=== PATIENT | female | born 1970 | race Caucasian/White ===

== ENCOUNTER 2021-11-16 20:43 | Inpatient (IN) | payer OTHER, SELFPAY ==
--- NOTE | ~2021-11-16 | CT_ITS ---
EXAMINATION: CT ABDOMEN AND PELVIS WITH CONTRAST CLINICAL INFORMATION: Cramping left abdomen for 5 days COMPARISON: None TECHNIQUE: Multidetector volumetric images were obtained from the superior aspect of the liver through the pubic symphysis following administration 85 mL of Omnipaque 350 intravenous contrast. Sagittal and coronal reformatted images were obtained on the technologist's workstation. Oral contrast: No This CT examination was performed using dose optimization techniques as appropriate, variously including the following: *Automated exposure control *Adjustment of mA and/or kV according to patient size (this includes techniques or standardized protocols for targeted exams where dose is matched to indication/reason for exam; i.e. extremities or head) *Use of iterative reconstruction technique DLP: 867 mGy-cm FINDINGS: LUNG BASES: The visualized lung bases are unremarkable. LIVER, GALLBLADDER, AND BILIARY TREE: The liver demonstrates hypoattenuation suspicious for steatosis. No intrahepatic biliary ductal dilatation. Patient is status post cholecystectomy. PANCREAS: Unremarkable. SPLEEN: Unremarkable. ADRENAL GLANDS: Unremarkable. KIDNEYS AND URETERS: There is a 1.6 cm mildly hypodense exophytic lesion off the lower right kidney measuring greater than simple fluid density. Bilateral nephrograms are symmetric. No hydronephrosis or obstructing calculus bilaterally. BLADDER: Unremarkable. GASTROINTESTINAL TRACT: There is a focal region of mesenteric stranding adjacent to proximal small bowel loops in the left abdomen. Central 0.8 cm focus of gas is present in this region which appears to be extraluminal. Appearance could reflect sequelae of a perforated diverticulitis, as there do appear to be a few jejunal diverticula in this region. No significant free fluid. No evidence of bowel obstruction. Colon appears unremarkable. The appendix is unremarkable. ABDOMINAL WALL: No significant hernia is appreciated. LYMPH NODES: Normal. VASCULAR: Unremarkable. PELVIC VISCERA: Unremarkable. OSSEOUS STRUCTURES: There is facet arthropathy of the lower lumbar spine. Scattered endplate osteophytes are present. CT/CT abdomen pelvis w con IMPRESSION: 1. Focal mesenteric inflammation adjacent to proximal small bowel loops in the left abdomen, along with a subcentimeter focus of extraluminal gas. Appearance suggests sequelae of a perforated jejunal diverticulitis. No significant free fluid, though the focus of extraluminal gas could reflect developing small abscess. 2. Exophytic lesion measuring 1.6 cm off the lower right kidney, not cystic by CT criteria. This could reflect a complex/proteinaceous cyst though a mass cannot be excluded, and further assessment with renal ultrasound is recommended. 3. Hepatic steatosis. This critical result was discussed with Dr. Sanz on 11/17/2021 4:23 AM, and it was ascertained that the content and urgency of the report was understood at the time of direct communication. Fleischner guidelines were followed.
[2021-11-16 21:52] VITALS: BP 131/72; PULSE 90; RESP 16; TEMP 36.7; O2SAT 98; BMI 37.8
[2021-11-16 22:23] LABS: MANUAL DIFF FLAG NO
[2021-11-16 22:25] LABS: Basophils Absolute Auto 0.1 X10*3/uL (0.0-0.2); Basophils Percent Auto 0.7 % (0-2); Eosinophils Absolute Auto 0.2 X10*3/uL (0.0-0.4); Eosinophils Percent Auto 2.5 % (0-4); Hemoglobin 13.3 g/dl (12.0-16.0); Imm Gran Abs Auto 0.05 X10*3/uL (0.00-0.03); Imm Gran Pct Auto 0.7 % (0.0-0.4); Lymphocytes Percent Auto 27.5 % (20-40); Mean Corpuscular HGB Conc 34.1 g/dl (31.0-35.0); Mean Corpuscular Hemoglobin 31.7 pg (27.0-33.0); Mean Corpuscular Volume 92.9 fL (80.0-98.0); Mean Platelet Volume 8.9 fL (9.4-12.3); Monocytes Absolute Auto 0.5 X10*3/uL (0.1-1.2); Monocytes Percent Auto 7.3 % (2-11); Neutrophils Absolute Auto 4.4 x10*3/uL (2.0-8.3); Neutrophils Percent Auto 61.3 % (45-73); Platelet Count 297 X10*3/uL (160-400); White Blood Count 7.2 X10*3/uL (4.8-10.8)
[2021-11-16 22:26] LABS: Appearance Urine HAZY; Color Urine YELLOW; Glucose Urine UA NEG (NEG); Leukocyte Esterase Urine 1+ (NEG); Nitrite Urine POS (NEG); Specific Gravity - Urine 1.025 (1.005-1.025); UACC Culture Trigger YES; Urine Blood NEG (NEG); Urine Ketones NEG (NEG); Urine Protein NEG (NEG-TRACE)
[2021-11-16 22:33] LABS: Bacteria Urine 2+ /LPF; RBC Urine 0 /HPF (0); Squamous Epithelial Cell Urine 2+ /LPF
[2021-11-16 23:05] LABS: Anion Gap 8 (12-20); Blood Urea Nitrogen 10 mg/dL (9-16); Calcium 9.3 mg/dL (8.4-10.2); Carbon Dioxide 33 mmol/L (22-29); Chloride 105 mmol/L (96-108); Creatinine Clr Calc Pharmacy 85.4; Estimated Glomerular Filt Rate > 60; Glucose Random 105 mg/dL (60-115); Sodium 142 mmol/L (135-145)
--- NOTE | 2021-11-17 00:51 | PC.NURSE ---
PT reports no N/V/D the past week. Stated that she has been having small BM and feels like her stomach is bloated. PT did report having the chills along with the stomach pain that started on [place]. PT stated that she had a large meal [place] morning when all of this started.
--- NOTE | 2021-11-17 03:13 | ED_ITS ---
HPI - Abdominal Pain General Chief Complaint: Abdominal Pain Stated Complaint: Abdominal pain Time Seen by Provider: 11/17/21 03:03 Source: patient Limitations: no limitations History of Present Illness HPI narrative: this is a 51-year-old female who since has had a cramping feeling in her abdomen, worse in the left side, sometimes radiating through to her back. Patient thought she might have a bowel obstruction. She denies any nausea or vomiting. She denies any constipation or diarrhea. She denies any urinary symptoms. She has not had any fever. She describes the pain as shooting and is worse when she presses on her mid abdomen. She does have history of cholecystectomy, denies other surgery. MD elicited complaint: abdominal pain Related Data Allergies Allergy/AdvReac Type Severity Reaction Status Date / Time acetaminophen [From VICODIN] Allergy Unknown DIFF Verified 11/17/21 05:53 BREATHING hydrocodone [From VICODIN] Allergy Unknown DIFF Verified 11/17/21 05:53 BREATHING penicillin V Allergy Unknown Difficulty Verified 11/17/21 05:53 Breathing Penicillins [PENICILLINS] Allergy Unknown DIFF Verified 11/17/21 05:53 BREATHING Review of Systems Review of Systems Yes all other systems are reviewed and are negative Constitutional: Reports as per HPI and Denies fever(s) Eyes: Reports as per HPI and Reports no additional eye complaints Reports system reviewed and no additional complaints, except as documented, Reports as per HPI, Denies nasal congestion, Denies nasal discharge and Denies sore throat Cardiovascular: Reports as per HPI, Denies chest pain and Denies dyspnea Respiratory: Reports as per HPI, Denies cough and Denies dyspnea Gastrointestinal: Reports as per HPI, Reports abdominal pain, Denies change in stool character, Reports GI cramping, Denies diarrhea and Denies vomiting Genitourinary: Reports as per HPI, Denies hematuria, Denies urinary frequency and Denies dysuria Musculoskeletal: Reports no additional musculoskeletal complaints and Denies numbness Skin/Breast: Reports as per HPI and Denies rash Reports as per HPI, Denies focal weakness, Denies numbness and Denies Sensory deficit (Neuro) Psychiatric: Reports no additional psychiatric complaints and Reports as per HPI Endocrine: Reports no additional endocrine complaints and Reports as per HPI Hematologic/Lymphatic: Reports no additional hematologic/lymphatic complaints, Reports as per HPI and Reports other (No peripheral edema) Physical Exam Vital Signs: Vital Signs: Last Vital Signs Temp 98.0 F 11/16/21 21:52 Pulse 80 11/17/21 05:10 Resp 16 11/17/21 05:10 BP 132/86 11/17/21 05:10 Pulse Ox 98 11/17/21 05:10 BMI result Body Mass Index 37.8 Const: Other: Patient moderately obese. Not ill appearing. Patient seems somewhat preoccupied on her symptoms General: cooperative, no acute distress and alert Orientation/consciousness: patient oriented x3 HENMT: Head: Yes normal to inspection Eyes: General: appearance normal, both eyes and all related structures Eyelids: Yes eyelids normal Conjunctivae: conjunctivae normal Pupils: Equal, round and reactive pupils present Neck: Neck: Yes normal visual inspection and Yes supple Chest: Chest palpation & inspection: normal inspection of the chest Resp: Effort & Inspection: normal respiratory effort Auscultation: clear to auscultation bilaterally Cardio: Rate: regular rate Rhythm: regular rhythm Heart sounds: S1 normal heart sound present, S2 normal heart sound present, no gallops, no murmurs and no rubs GI: Palpation (GI): Soft to palpation, nontender and Other GI palpation findings present (Non-distended) Auscultation: normal bowel sounds Skin: General skin exam: no rashes or lesions noted Neuro: General: patient oriented x3, no focal motor deficits and CN's II-XI intact bilaterally Cranial nerves: Yes Equal, round and reactive pupils present Cognition (Neuro): normal cognition Motor exam (neuro): 5/5 motor strength present throughout Sensory Exam: No Sensory deficit (Neuro) Extrem: General: Yes normal to inspection and Yes no pedal edema Psych: Appearance: grossly normal Affect: normal affect MDM - Abdominal Pain MDM Narrative Medical decision making narrative: patient with a sense of abdominal cramping for approximately 6 days. Patient had minimal tenderness on exam. Symptoms worse on the left side. CBC and chemistry unremarkable. Urinalysis was positive for nitrites and leukocyte esterase but only a 3-5 white blood cells per high-power field, and the patient had no UTI symptoms. CT of the head and pelvis did show evidence of small-bowel diverticulitis with possible small perforation. Case was discussed with Dr. Stover of general surgery who will admit the patient. . Possible microperforation, no drainable fluid collection Lab Data Attestation: I reviewed the patient's lab results. Result diagrams: 11/16/21 22:19 11/16/21 22:19 Labs: Lab Results 11/16/21 11/16/21 11/16/21 Range/Units 22:19 22:19 22:19 WBC 7.2 (4.8-10.8) X10*3/uL RBC 4.20 (4.20-5.50) X10*6/uL Hgb 13.3 (12.0-16.0) g/dl Hct 39.0 (37.0-47.0) % MCV 92.9 (80.0-98.0) fL MCH 31.7 (27.0-33.0) pg MCHC 34.1 (31.0-35.0) g/dl RDW 12.0 (11.0-16.0) % Plt Count 297 (160-400) X10*3/uL MPV 8.9 L (9.4-12.3) fL Immature Gran % (Auto) 0.7 H (0.0-0.4) % Neut % (Auto) 61.3 (45-73) % Lymph % (Auto) 27.5 (20-40) % [place] % (Auto) 7.3 (2-11) % Eos % (Auto) 2.5 (0-4) % Baso % (Auto) 0.7 (0-2) % Lymph # (Auto) 2.0 (1.2-4.9) X10*3/uL [place] # (Auto) 0.5 (0.1-1.2) X10*3/uL Eos # (Auto) 0.2 (0.0-0.4) X10*3/uL Baso # (Auto) 0.1 (0.0-0.2) X10*3/uL Abs Immat Gran (auto) 0.05 H (0.00-0.03) X10*3/uL Absolute Neuts (auto) 4.4 (2.0-8.3) x10*3/uL Absolute Nucleated RBC 0.000 (0.0-0.012) X10*3/uL Nucleated RBC % (auto) 0.0 (0.0-0.2) /100WBC Sodium 142 (135-145) mmol/L Potassium 4.0 (3.3-5.1) mmol/L Chloride 105 (96-108) mmol/L Carbon Dioxide 33 H (22-29) mmol/L Anion Gap 8 L (12-20) BUN 10 (9-16) mg/dL Creatinine 0.79 (0.5-1.4) mg/dL Estim Creat Clear Calc 85.4 Estimated GFR > 60 Random Glucose 105 (60-115) mg/dL Calcium 9.3 (8.4-10.2) mg/dL Urine Color YELLOW Urine Appearance HAZY Urine pH 6.0 (5.0-8.0) Ur Specific [place] 1.025 (1.005-1.025) Urine Protein NEG (NEG-TRACE) MG/DL Urine Glucose (UA) NEG (NEG) MG/DL Urine Ketones NEG (NEG) MG/DL Urine Blood NEG (NEG) Urine Nitrite POS H (NEG) Ur Leukocyte Esterase 1+ H (NEG) Urine RBC 0 (0) /HPF Urine WBC 1-4 (0-4) /HPF Ur Squamous Epith Cells 2+ /LPF Urine Bacteria 2+ /LPF Imaging Data CT of the abdomen and pelvis with IV contrast: Attestation: I personally reviewed and interpreted this imaging study as follows: Radiologist's impression: 1.? Focal mesenteric inflammation adjacent to proximal small bowel loops in the left abdomen, along with a subcentimeter focus of extraluminal gas. Appearance suggests sequelae of a perforated jejunal diverticulitis. No significant free fluid, though the focus of extraluminal gas could reflect developing small abscess. 2.? Exophytic lesion measuring 1.6 cm off the lower right kidney, not cystic by CT criteria. This could reflect a complex/proteinaceous cyst though a mass cannot be excluded, and further assessment with renal ultrasound is recommended. 3.? Hepatic steatosis. ? This critical result was discussed with Dr. Sanz on 11/17/2021 4:23 AM, and it was ascertained that the content and urgency of the report was understood at the time of direct communication. Discharge Plan Discharge Clinical Impression: Diverticulitis Patient Disposition: Admitted As Inpatient [facility] Past Medical History Medical History (Updated 11/17/21 @ 06:57 by Jarek Sanz MD) No known health problems Social History Social History Advance Directives: No Patient : No
[2021-11-17 03:40] VITALS: BP 127/65; PULSE 78; RESP 16; O2SAT 100
[2021-11-17] MEDS: iohexoL 350 MG/ML 100 ML INFUS..BTL 85 ML IV (03:45)
[2021-11-17 05:10] VITALS: BP 132/86; PULSE 80; RESP 16; O2SAT 98
--- NOTE | 2021-11-17 05:44 | PC.NURSE ---
This RN attempted to complete PT med rec at bed side. PT stated that she does not take any meds at home at this time.
[2021-11-17 05:52] LABS: COVID-19 Test Negative (Negative); IDNOW Serial# 9DD0AD1C
[2021-11-17] MEDS: 0.9 % Sodium Chloride 1,000 ML 80 ML IVCONT (05:57)
[2021-11-17] MEDS: Heparin Sodium,Porcine 5,000 UNIT/ML VIAL 5000 UNIT SUBCUT ×2 (05:57→17:53)
[2021-11-17] MEDS: metroNIDAZOLE/NS 500 MG/100 ML PIGGYBACK 100 MG IV ×3 (06:02→21:51)
--- NOTE | 2021-11-17 06:49 | PC.NURSE ---
Report given to observation unit.
[2021-11-17] MEDS: levoFLOXacin/D5W 500 MG/100 ML PIGGYBACK 100 MG IV (07:14)
--- NOTE | 2021-11-17 08:57 | P.HPGS_ITS ---
History of Present Illness History of Present Illness Date of Service: 11/17/21 Chief complaint: Abd pain Narrative: Carolina Elias is a 51 year old female presenting with complaints of generalized abdominal pain feel worse in the left lower quadrant. The pain began around and has persisted since then. Pain initially was felt more the left upper quadrant but now has become more persistent in the lower quadrants. She denies fever, chills, nausea, or vomiting. She has not moved her bowels in several days and feels somewhat bloated because of this. She denies a previous history of similar complaints. Her past history is significant only for a cholecystectomy in 1996 and denies any problems following the surgery. She presented To the emergency department for further evaluation. Initial laboratories revealed a normal WBC. A CT of the abdomen and pelvis revealed a focal area of mesenteric inflammation adjacent to small bowel loops in the left abdomen along with a subcentimeter focus of extraluminal gas, possibly due to jejunal diverticulitits. No free fluid noted. Exophytic lesion in the right kidney, possible complex proteinaceous cyst or mass. Renal ultrasound recommended. Review of Systems Review of Systems: Yes all other systems are reviewed and are negative Constitutional: Constitutional: Denies chills, Denies fever(s), Denies headache(s) and Denies poor appetite ENT: Denies dizziness and Denies headache(s) Cardiovascular: Cardiovascular: Denies chest pain, Denies rapid heart rate, Denies palpitations and Denies slow heart rate Respiratory: Respiratory: Denies chest congestion, Denies cough, Denies pain on inspiration and Denies wheezing Gastrointestinal: Gastrointestinal: Reports as per HPI, Reports abdominal pain, Denies bloating, Reports change in stool character, Reports constipation, Denies diarrhea, Denies nausea, Denies vomiting and Denies hematemesis Musculoskeletal: Musculoskeletal: Denies back pain, Denies arthralgias, Denies joint swelling and Denies numbness Integumentary/Breasts: Skin/Breast: Denies change in pigmentation, Denies erythema and Denies rash Neurologic: Denies dizziness, Denies headache(s) and Denies numbness Psychiatric: Psychiatric: Denies anxiety and Denies depression Endocrine: Endocrine: Denies palpitations Hematologic/Lymphatic: Hematologic/Lymphatic: Denies easy bleeding, Denies easy bruising and Denies lymphadenopathy Allergic/Immunologic: Allergic/Immunologic: Denies wheezing PMFSH Past Medical History Medical History (Updated 11/17/21 @ 06:57 by Jarek Sanz MD) No known health problems Surgical History Surgical History (Updated 11/17/21 @ 09:04 by Josué Victoria MD) S/P cholecystectomy Social History Social History Advance Directives: No Patient : No Meds Allergies Allergy/AdvReac Type Severity Reaction Status Date / Time acetaminophen [From VICODIN] Allergy Unknown DIFF Verified 11/17/21 05:53 BREATHING hydrocodone [From VICODIN] Allergy Unknown DIFF Verified 11/17/21 05:53 BREATHING penicillin V Allergy Unknown Difficulty Verified 11/17/21 05:53 Breathing Penicillins [PENICILLINS] Allergy Unknown DIFF Verified 11/17/21 05:53 BREATHING Active Medications: Current Medications Heparin Sodium (Porcine) (Heparin Sodium,Porcine 5,000 Unit/Ml Vial) 5,000 unit SUBCUT Q12H [facility] Last Admin: 11/17/21 05:57 Dose: 5,000 unit Documented by: Sodium Chloride (Ns) 1,000 mls @ 80 mls/hr IVCONT .[id number] [facility] Last Admin: 11/17/21 05:57 Dose: 80 mls/hr Documented by: Levofloxacin (Levaquin) 500 mg in 100 mls @ 100 mls/hr IV Q24H [facility] Last Infusion: 11/17/21 08:49 Dose: Infused Documented by: Metronidazole (Flagyl) 500 mg in 100 mls @ 100 mls/hr IV Q8H [facility] Last Infusion: 11/17/21 07:13 Dose: Infused Documented by: Morphine Sulfate (Morphine Sulfate 4 Mg/Ml Cartridge) 3 mg IVPUSH Q4H PRN; Protocol PRN Reason: Pain, Severe (Pain Scale 7-10) Ondansetron HCl (Ondansetron Hcl 4 Mg/2 Ml Vial) 4 mg IVPUSH Q8H PRN PRN Reason: nausea Sodium Chloride (0.9 % Sodium Chloride Flush 3 Ml Syringe) 3 ml IVFLUSH QSHIFT [facility] Last Admin: 11/17/21 08:49 Dose: Not Given Documented by: Physical Exam Vital Signs: Vital Signs: Last Vital Signs Temp 98.0 F 11/16/21 21:52 Pulse 80 11/17/21 05:10 Resp 16 11/17/21 05:10 BP 132/86 11/17/21 05:10 Pulse Ox 98 11/17/21 05:10 BMI result Body Mass Index 37.8 Const: General: cooperative, comfortable and no acute distress Nutritional Appearance: well nourished Orientation/consciousness: patient oriented x3 Limitations: no limitations HENMT: Head: Yes normocephalic Ears: hearing grossly normal bilaterally Eyes: Sclerae: sclerae normal Neck: Neck: Yes normal visual inspection Resp: Effort & Inspection: normal respiratory effort Auscultation: clear to auscultation bilaterally GI: Inspection: Yes normal to inspection Palpation (GI): Soft to palpation, Tenderness to palpation present (GI) (mildly tender to deep palpation) in the LLQ and in the LUQ; Negative for with no rebound tenderness, no guarding, No hepatosplenomegaly present and no masses Percussion: Yes normal to percussion Auscultation: normal bowel sounds Rectal Exam - Female: deferred Skin: General skin exam: no rashes or lesions noted Neuro: General: patient oriented x3 Extrem: General: Yes normal exam except as noted Results Results Labs: Short CBC 11/16/21 Range/Units 22:19 WBC 7.2 (4.8-10.8) X10*3/uL Hgb 13.3 (12.0-16.0) g/dl Hct 39.0 (37.0-47.0) % Plt Count 297 (160-400) X10*3/uL BMP 11/16/21 22:19 Sodium 142 Potassium 4.0 Chloride 105 Carbon Dioxide 33 H BUN 10 Creatinine 0.79 Calcium 9.3 Urine 11/16/21 Range/Units 22:19 Urine Color YELLOW Urine Appearance HAZY Urine pH 6.0 (5.0-8.0) Ur Specific [place] 1.025 (1.005-1.025) Urine Protein NEG (NEG-TRACE) MG/DL Urine Glucose (UA) NEG (NEG) MG/DL Assessment and Plan (1) Diverticulitis: Status: Acute 51 year old female patient presenting with complaints of left sided abdominal pain found to have tenderness in the lower abdomen left> right. Labs reveal a normal WBC but CT is concerning for a jejunal microperf with diverticulitis. Her exam this morning is very benign with minimal tenderness to deep palpation and without peritoneal signs. Will continue Levofloxacin and Metronidizole and recheck WBC in AM. May need to repeat the scan tomorrow if WBC increased or abdominal pain worsens. Discussed plan with the patient and she agrees with the plan. Quality Stroke Does the patient have a stroke diagnosis?: No VTE Prior VTE?: No VTE Risk Level:: Medical - moderate - high VTE Device Contraindication: N/A - Device Ordered VTE Drug Contraindication: N/A - Med Ordered Procedures Date of Service Date of Service: 11/17/21
[2021-11-17 09:00] VITALS: BP 119/53; PULSE 77; RESP 15; O2SAT 98
[2021-11-17] MEDS: Dextrose 5 % and Lactated Ring 1,000 ML 125 ML IVCONT ×3 (09:24→23:36)
--- NOTE | 2021-11-17 10:18 | MHC.CM.PN ---
EMR REVIEWED, PT ADMITTED W/ABD PAIN AND ACUTE DIVERTICULITIS, PER SURGICAL PT WILL REMAIN ON IV LEVOFLOXACINA AND METRONIDIZOLE AND LABS WILL BE RECHECKED IN AM, CM MET W/PT WHO REPORTS SHE LIVES W/HER AND HE WILL PROVIDE TRANSPORT HOME, PT WORKS, IS INDEPENDENT W/ALL CARE, NO DME AND NO HOME SERVICES, PT VERIFIES PCP IS OSMAN ADAME AND WOULD LIKE TO COMPLETE A HCP PRIOR TO D/C. D/C PLAN: HOME NO SERVICES, FOR TRANSPORT.
[2021-11-17] MEDS: 0.9 % Sodium Chloride Flush 3 ML SYRINGE IVFLUSH ×2 (14:41→23:36)
[2021-11-17 14:42] VITALS: BMI 40.7
[2021-11-17 16:00] VITALS: BP 114/57; PULSE 80; RESP 17; TEMP 36.2; O2SAT 98
--- NOTE | 2021-11-17 16:19 | MHC.CM.PN ---
CM MET W/PT TO COMPLETE HCP, PT NAMES HER [facility] [phone] HER HEALTH CARE AGENT AND HER DTR GENE POS [phone] HER ALTERNATE, PT PROVIDED W/EDUCATIONAL INFO, ORIGINAL AND 2 COPIES, COPY UPLOADED TO [email or web address] AND PLACED IN CHART.
[2021-11-17] MEDS: Acetaminophen 325 MG TABLET 650 MG PO (17:52)
[2021-11-17] MEDS: ondansetron HCL 4 MG/2 ML VIAL IVPUSH (17:52)
[2021-11-17 20:00] VITALS: BP 117/69; PULSE 76; RESP 17; TEMP 36.2; O2SAT 96
[2021-11-18] VITALS: BP 121/57; PULSE 72; RESP 17; TEMP 36.1; O2SAT 95
[2021-11-18] MEDS: Acetaminophen 325 MG TABLET 650 MG PO (01:41)
[2021-11-18 04:00] VITALS: BP 128/65; PULSE 64; RESP 17; TEMP 36.1; O2SAT 96
[2021-11-18] MEDS: levoFLOXacin/D5W 500 MG/100 ML PIGGYBACK 100 MG IV (05:10)
[2021-11-18] MEDS: Heparin Sodium,Porcine 5,000 UNIT/ML VIAL 5000 UNIT SUBCUT ×2 (06:15→16:40)
[2021-11-18] MEDS: metroNIDAZOLE/NS 500 MG/100 ML PIGGYBACK 100 MG IV ×3 (06:17→21:43)
[2021-11-18 06:24] LABS: MANUAL DIFF FLAG NO
[2021-11-18 06:34] LABS: Basophils Percent Auto 0.8 % (0-2); Eosinophils Absolute Auto 0.1 X10*3/uL (0.0-0.4); Eosinophils Percent Auto 1.8 % (0-4); Hematocrit 37.4 % (37.0-47.0); Hemoglobin 12.4 g/dl (12.0-16.0); Imm Gran Abs Auto 0.04 X10*3/uL (0.00-0.03); Imm Gran Pct Auto 0.8 % (0.0-0.4); Lymphocytes Absolute Auto 1.3 X10*3/uL (1.2-4.9); Lymphocytes Percent Auto 26.7 % (20-40); Mean Corpuscular HGB Conc 33.2 g/dl (31.0-35.0); Mean Corpuscular Volume 93.5 fL (80.0-98.0); Monocytes Absolute Auto 0.3 X10*3/uL (0.1-1.2); Neutrophils Absolute Auto 3.2 x10*3/uL (2.0-8.3); Neutrophils Percent Auto 63.9 % (45-73); Platelet Count 282 X10*3/uL (160-400)
[2021-11-18 06:50] LABS: Anion Gap 8 (12-20); Blood Urea Nitrogen 7 mg/dL (9-16); Calcium 8.9 mg/dL (8.4-10.2); Carbon Dioxide 30 mmol/L (22-29); Chloride 108 mmol/L (96-108); Creatinine Clr Calc Pharmacy 91.5; Estimated Glomerular Filt Rate > 60; Glucose Random 126 mg/dL (60-115); Sodium 142 mmol/L (135-145)
--- NOTE | 2021-11-18 07:20 | PC.NURSE ---
0635, IV SITE AT RIGHT AC NOTED TO BE RED, LITTLE ITCHY, AND TENDER. ANGIO REMOVED INTACT, WARM PACK APPLIED FOR COMFORT. NEW SITE ESTABLISHED TO LEFT AC #22, IVABX RESUMED. DAY RN UPDATED.
[2021-11-18 07:52] VITALS: BP 118/68; PULSE 66; RESP 18; TEMP 36.5; O2SAT 99
--- NOTE | 2021-11-18 10:59 | PM.PNGS ---
Subjective Subjective Date of Service: 11/18/21 Interval history: Patient feels improved with decreased abdominal pain and no nausea or vomiting. She denies having a bowel movement but does pass flatus. She denies fever or chills. Physical Exam Vital Signs: Vital Signs: Last Vital Signs Temp 97.7 F 11/18/21 07:52 Pulse 66 11/18/21 07:52 Resp 18 11/18/21 07:52 BP 118/68 11/18/21 07:52 Pulse Ox 99 11/18/21 07:52 BMI result Body Mass Index 40.7 Const: General: no acute distress and well developed Resp: Effort & Inspection: normal respiratory effort, no audible wheezes, no cough and no respiratory distress GI: Inspection: Yes normal to inspection Palpation (GI): Soft to palpation, nontender, no guarding, not rigid and No Rebound tenderness present Skin: General skin exam: no rashes or lesions noted Extrem: General: Yes no clubbing, cyanosis or edema Objective Data Active Medications Acetaminophen (Acetaminophen 325 Mg Tablet) 650 mg PO Q6H PRN PRN Reason: Headache Last Admin: 11/18/21 01:41 Dose: 650 mg Documented by: JOSE Heparin Sodium (Porcine) (Heparin Sodium,Porcine 5,000 Unit/Ml Vial) 5,000 unit SUBCUT Q12H [facility] Last Admin: 11/18/21 06:15 Dose: 5,000 unit Documented by: JOSE Levofloxacin (Levaquin) 500 mg in 100 mls @ 100 mls/hr IV Q24H [facility] Last Infusion: 11/18/21 06:28 Dose: 0 mls/hr Documented by: JOSE Metronidazole (Flagyl) 500 mg in 100 mls @ 100 mls/hr IV Q8H [facility] Last Infusion: 11/18/21 08:39 Dose: 0 mls/hr Documented by: JAVON Dextrose/Lactated Ringer's (D5lr) 1,000 mls @ 125 mls/hr IVCONT .Q8H [facility] Last Infusion: 11/18/21 05:10 Dose: 0 mls/hr Documented by: JOSE Morphine Sulfate (Morphine Sulfate 4 Mg/Ml Cartridge) 3 mg IVPUSH Q4H PRN; Protocol PRN Reason: Pain, Severe (Pain Scale 7-10) Ondansetron HCl (Ondansetron Hcl 4 Mg/2 Ml Vial) 4 mg IVPUSH Q8H PRN PRN Reason: nausea Last Admin: 11/17/21 17:52 Dose: 4 mg Documented by: NITIN Sodium Chloride (0.9 % Sodium Chloride Flush 3 Ml Syringe) 3 ml IVFLUSH QSHIFT [facility] Last Admin: 11/18/21 08:39 Dose: Not Given Documented by: JAVON Non-Admin Reason: IV Running Labs CBC & Chem 7: 11/18/21 05:30 11/18/21 05:30 Labs: Laboratory Results - last 24 hr 11/18/21 11/18/21 05:30 05:30 MCV 93.5 MCH 31.0 MCHC 33.2 RDW 12.0 Plt Count 282 MPV 9.0 L Immature Gran % (Auto) 0.8 H Neut % (Auto) 63.9 Lymph % (Auto) 26.7 Collier % (Auto) 6.0 Eos % (Auto) 1.8 Baso % (Auto) 0.8 Lymph # (Auto) 1.3 Collier # (Auto) 0.3 Eos # (Auto) 0.1 Baso # (Auto) 0.0 Abs Immat Gran (auto) 0.04 H Absolute Neuts (auto) 3.2 Absolute Nucleated RBC 0.000 Nucleated RBC % (auto) 0.0 Anion Gap 8 L Estim Creat Clear Calc 91.5 Estimated GFR > 60 Random Glucose 126 H Calcium 8.9 Microbiology Microbiology Results: Microbiology 11/16/21 22:27 Urine Culture - Final Urine clean catch - Urine ag top Escherichia coli Procedures Date of Service Date of Service: 11/18/21 Progress Note: A&P Assessment and plan (1) Diverticulitis: Status: Acute Assessment and Plan: 51 year old female patient presenting with complaints of left sided abdominal pain found to have tenderness in the lower abdomen left> right.? Labs reveal a normal WBC but CT is concerning for a jejunal microperf with diverticulitis.? Her exam again is benign with no tenderness to deep palpation in the left lower quadrant. WBC this morning is normal at 5.0. I will continue the Levaquin and metronidazole and start her on clear liquid diet today. If this is well tolerated she will be advanced to a regular diet tomorrow with possible discharge later in the day.? Discussed plan with the patient and she agrees with the plan.? Fall Risk Details Current Medications: Current Medications Acetaminophen (Acetaminophen 325 Mg Tablet) 650 mg PO Q6H PRN PRN Reason: Headache Last Admin: 11/18/21 01:41 Dose: 650 mg Documented by: Heparin Sodium (Porcine) (Heparin Sodium,Porcine 5,000 Unit/Ml Vial) 5,000 unit SUBCUT Q12H [facility] Last Admin: 11/18/21 06:15 Dose: 5,000 unit Documented by: Levofloxacin (Levaquin) 500 mg in 100 mls @ 100 mls/hr IV Q24H [facility] Last Infusion: 11/18/21 06:28 Dose: Infused Documented by: Metronidazole (Flagyl) 500 mg in 100 mls @ 100 mls/hr IV Q8H [facility] Last Infusion: 11/18/21 08:39 Dose: Infused Documented by: Dextrose/Lactated Ringer's (D5lr) 1,000 mls @ 125 mls/hr IVCONT .Q8H [facility] Last Infusion: 11/18/21 05:10 Dose: 0 mls/hr Documented by: Morphine Sulfate (Morphine Sulfate 4 Mg/Ml Cartridge) 3 mg IVPUSH Q4H PRN; Protocol PRN Reason: Pain, Severe (Pain Scale 7-10) Ondansetron HCl (Ondansetron Hcl 4 Mg/2 Ml Vial) 4 mg IVPUSH Q8H PRN PRN Reason: nausea Last Admin: 11/17/21 17:52 Dose: 4 mg Documented by: Sodium Chloride (0.9 % Sodium Chloride Flush 3 Ml Syringe) 3 ml IVFLUSH QSHIFT [facility] Last Admin: 11/18/21 08:39 Dose: Not Given Documented by: Time Spent With Patient Time: Total time spent is greater than 50% in coordination of care (as documented) at patient's floor/unit and/or counseling patient: Time with patient: 15 - 24 minutes Quality Stroke Does the patient have a stroke diagnosis?: No VTE Prior VTE?: No VTE Risk Level:: Medical - moderate - high VTE Device Contraindication: N/A - Device Ordered VTE Drug Contraindication: N/A - Med Ordered
[2021-11-18 12:00] VITALS: BP 117/76; PULSE 78; RESP 18; TEMP 36.3; O2SAT 98
[2021-11-18] MEDS: Dextrose 5 % and Lactated Ring 1,000 ML 125 ML IVCONT ×2 (12:19→21:43)
[2021-11-18 16:00] VITALS: BP 128/76; PULSE 68; RESP 17; TEMP 36.3; O2SAT 98
[2021-11-18 20:00] VITALS: BP 140/73; PULSE 74; RESP 17; TEMP 36.3; O2SAT 97
[2021-11-19] VITALS: BP 130/72; PULSE 60; RESP 17; TEMP 36.4; O2SAT 96
[2021-11-19 03:48] VITALS: BP 132/71; PULSE 67; RESP 17; TEMP 36.1; O2SAT 98
[2021-11-19] MEDS: levoFLOXacin/D5W 500 MG/100 ML PIGGYBACK 100 MG IV (04:50)
[2021-11-19] MEDS: Dextrose 5 % and Lactated Ring 1,000 ML 125 ML IVCONT (04:50)
[2021-11-19] MEDS: Heparin Sodium,Porcine 5,000 UNIT/ML VIAL 5000 UNIT SUBCUT ×2 (06:41→16:38)
[2021-11-19] MEDS: metroNIDAZOLE/NS 500 MG/100 ML PIGGYBACK 100 MG IV ×3 (06:41→21:06)
[2021-11-19 08:00] VITALS: BP 142/73; PULSE 74; RESP 18; TEMP 36.4; O2SAT 99
--- NOTE | 2021-11-19 08:21 | P.PNGS_ITS ---
Subjective Subjective Date of Service: 11/19/21 Interval history: Overall the patient feels much improved. She passed her bowels overnight and was able to tolerated clear liquid diet without increased abdominal pain. She feels ready for a regular meal Physical Exam Vital Signs: Vital Signs: Last Vital Signs Temp 96.9 F 11/19/21 03:48 Pulse 67 11/19/21 03:48 Resp 17 11/19/21 03:48 BP 132/71 11/19/21 03:48 Pulse Ox 98 11/19/21 03:48 BMI result Body Mass Index 40.7 Const: General: no acute distress Nutritional Appearance: well nourished Orientation/consciousness: patient oriented x3 Limitations: no limitations Resp: Other: Breathing comfortably on room air, no shortness of breath GI: Other: Soft, nondistended, nontender to deep palpation, no rebound, guarding, or rigidity. Skin: Other: Warm, dry, no rash Neuro: General: patient oriented x3 Extrem: Other: No edema Objective Data Active Medications Acetaminophen (Acetaminophen 325 Mg Tablet) 650 mg PO Q6H PRN PRN Reason: Headache Last Admin: 11/18/21 01:41 Dose: 650 mg Documented by: JOSE Heparin Sodium (Porcine) (Heparin Sodium,Porcine 5,000 Unit/Ml Vial) 5,000 unit SUBCUT Q12H [facility] Last Admin: 11/19/21 06:41 Dose: 5,000 unit Documented by: SARAH Levofloxacin (Levaquin) 500 mg in 100 mls @ 100 mls/hr IV Q24H [facility] Last Infusion: 11/19/21 05:57 Dose: 0 mls/hr Documented by: SARAH Metronidazole (Flagyl) 500 mg in 100 mls @ 100 mls/hr IV Q8H [facility] Last Infusion: 11/19/21 07:59 Dose: 0 mls/hr Documented by: JAVON Morphine Sulfate (Morphine Sulfate 4 Mg/Ml Cartridge) 3 mg IVPUSH Q4H PRN; Protocol PRN Reason: Pain, Severe (Pain Scale 7-10) Ondansetron HCl (Ondansetron Hcl 4 Mg/2 Ml Vial) 4 mg IVPUSH Q8H PRN PRN Reason: nausea Last Admin: 11/17/21 17:52 Dose: 4 mg Documented by: NITIN Oxycodone HCl (Oxycodone Hcl Immed Release 5 Mg Tablet) 5 mg PO Q6H PRN PRN Reason: Pain, Moderate (Pain Scale 4-6 Sodium Chloride (0.9 % Sodium Chloride Flush 3 Ml Syringe) 3 ml IVFLUSH QSHIFT [facility] Last Admin: 11/19/21 07:59 Dose: Not Given Documented by: JAVON Non-Admin Reason: IV Running Labs CBC & Chem 7: 11/18/21 05:30 11/18/21 05:30 Microbiology Microbiology Results: Microbiology 11/16/21 22:27 Urine Culture - Final Urine clean catch - Urine ag top Escherichia coli Procedures Date of Service Date of Service: 11/19/21 Progress Note: A&P Assessment and plan (1) Diverticulitis: Status: Acute Assessment and Plan: 51-year-old female patient found to have abdominal pain in the left abdomen noted on CT to have possible jejunal diverticulitis. She is now much improved without any additional abdominal pain and tolerating a clear liquid diet. Examination reveals no tenderness throughout her abdomen to deep palpation. No peritoneal signs are elicited. I will advance her to a regular diet. If this is well tolerated she may be able to be discharged later today on oral antibiotics. I will keep her on the Levaquin and Flagyl. She should follow up in our office in 1 week. Fall Risk Details Current Medications: Current Medications Acetaminophen (Acetaminophen 325 Mg Tablet) 650 mg PO Q6H PRN PRN Reason: Headache Last Admin: 11/18/21 01:41 Dose: 650 mg Documented by: Heparin Sodium (Porcine) (Heparin Sodium,Porcine 5,000 Unit/Ml Vial) 5,000 unit SUBCUT Q12H [facility] Last Admin: 11/19/21 06:41 Dose: 5,000 unit Documented by: Levofloxacin (Levaquin) 500 mg in 100 mls @ 100 mls/hr IV Q24H [facility] Last Infusion: 11/19/21 05:57 Dose: Infused Documented by: Metronidazole (Flagyl) 500 mg in 100 mls @ 100 mls/hr IV Q8H [facility] Last Infusion: 11/19/21 07:59 Dose: Infused Documented by: Morphine Sulfate (Morphine Sulfate 4 Mg/Ml Cartridge) 3 mg IVPUSH Q4H PRN; Protocol PRN Reason: Pain, Severe (Pain Scale 7-10) Ondansetron HCl (Ondansetron Hcl 4 Mg/2 Ml Vial) 4 mg IVPUSH Q8H PRN PRN Reason: nausea Last Admin: 11/17/21 17:52 Dose: 4 mg Documented by: Oxycodone HCl (Oxycodone Hcl Immed Release 5 Mg Tablet) 5 mg PO Q6H PRN PRN Reason: Pain, Moderate (Pain Scale 4-6 Sodium Chloride (0.9 % Sodium Chloride Flush 3 Ml Syringe) [facility] Last Admin: 11/19/21 07:59 Dose: Not Given Documented by: Time Spent With Patient Time: Total time spent is greater than 50% in coordination of care (as documented) at patient's floor/unit and/or counseling patient: Time with patient: 15 - 24 minutes Quality Stroke Does the patient have a stroke diagnosis?: No VTE Prior VTE?: No VTE Risk Level:: Medical - moderate - high VTE Device Contraindication: N/A - Device Ordered VTE Drug Contraindication: N/A - Med Ordered
[2021-11-19 12:00] VITALS: BP 133/73; PULSE 66; RESP 18; TEMP 36.5; O2SAT 95
[2021-11-19 16:00] VITALS: BP 119/73; PULSE 87; RESP 18; TEMP 36.1; O2SAT 98
[2021-11-19 18:50] VITALS: BP 129/73; PULSE 79; RESP 18; TEMP 36.8; O2SAT 96
[2021-11-19] MEDS: 0.9 % Sodium Chloride Flush 3 ML SYRINGE IVFLUSH (23:49)
[2021-11-20] VITALS: BP 134/75; PULSE 71; RESP 18; TEMP 36.1; O2SAT 98
[2021-11-20 03:59] VITALS: BP 125/74; PULSE 83; RESP 18; TEMP 36.2; O2SAT 95
[2021-11-20] MEDS: levoFLOXacin/D5W 500 MG/100 ML PIGGYBACK 100 MG IV (04:28)
[2021-11-20] MEDS: metroNIDAZOLE/NS 500 MG/100 ML PIGGYBACK 100 MG IV (05:35)
[2021-11-20 07:38] VITALS: BP 135/91; PULSE 74; RESP 20; TEMP 36.7; O2SAT 99
--- NOTE | 2021-11-20 08:50 | PM.PNGS ---
Subjective Subjective Date of Service: 11/20/21 Interval history: She feels well Denies abdominal pain Tolerating diet well States she is looking forward to getting discharged today Physical Exam Vital Signs: Vital Signs: Last Vital Signs Temp 98.1 F 11/20/21 07:38 Pulse 74 11/20/21 07:38 Resp 20 11/20/21 07:38 BP 135/91 H 11/20/21 07:38 Pulse Ox 99 11/20/21 07:38 BMI result Body Mass Index 40.7 Const: General: comfortable and no acute distress Resp: Effort & Inspection: normal respiratory effort Cardio: Rhythm: regular rhythm GI: Palpation (GI): Soft to palpation, not firm, nontender and no guarding Objective Data Active Medications Acetaminophen (Acetaminophen 325 Mg Tablet) 650 mg PO Q6H PRN PRN Reason: Headache Last Admin: 11/18/21 01:41 Dose: 650 mg Documented by: JOSE Heparin Sodium (Porcine) (Heparin Sodium,Porcine 5,000 Unit/Ml Vial) 5,000 unit SUBCUT Q12H [facility] Last Admin: 11/20/21 05:38 Dose: Not Given Documented by: SARAH Non-Admin Reason: Patient Refused Levofloxacin (Levaquin) 500 mg in 100 mls @ 100 mls/hr IV Q24H [facility] Last Infusion: 11/20/21 05:38 Dose: 0 mls/hr Documented by: SARAH Metronidazole (Flagyl) 500 mg in 100 mls @ 100 mls/hr IV Q8H [facility] Last Infusion: 11/20/21 06:53 Dose: 0 mls/hr Documented by: SAARH Morphine Sulfate (Morphine Sulfate 4 Mg/Ml Cartridge) 3 mg IVPUSH Q4H PRN; Protocol PRN Reason: Pain, Severe (Pain Scale 7-10) Ondansetron HCl (Ondansetron Hcl 4 Mg/2 Ml Vial) 4 mg IVPUSH Q8H PRN PRN Reason: nausea Last Admin: 11/17/21 17:52 Dose: 4 mg Documented by: NITIN Oxycodone HCl (Oxycodone Hcl Immed Release 5 Mg Tablet) 5 mg PO Q6H PRN PRN Reason: Pain, Moderate (Pain Scale 4-6 Sodium Chloride (0.9 % Sodium Chloride Flush 3 Ml Syringe) 3 ml IVFLUSH QSHIFT [facility] Last Admin: 11/19/21 23:49 Dose: 3 ml Documented by: SARAH Labs CBC & Chem 7: 11/18/21 05:30 11/18/21 05:30 Progress Note: A&P Assessment and plan (1) Diverticulitis: Status: Acute Assessment and Plan: Good GI function No pain No tenderness, abdominal exam benign Has been afebrile Okay to DC home on oral antibiotics Explained to her that she should discuss scheduling for colonoscopy through her primary care physician Fall Risk Details Current Medications: Current Medications Acetaminophen (Acetaminophen 325 Mg Tablet) 650 mg PO Q6H PRN PRN Reason: Headache Last Admin: 11/18/21 01:41 Dose: 650 mg Documented by: Heparin Sodium (Porcine) (Heparin Sodium,Porcine 5,000 Unit/Ml Vial) 5,000 unit SUBCUT Q12H [facility] Last Admin: 11/20/21 05:38 Dose: Not Given Documented by: Levofloxacin (Levaquin) 500 mg in 100 mls @ 100 mls/hr IV Q24H [facility] Last Infusion: 11/20/21 05:38 Dose: Infused Documented by: Metronidazole (Flagyl) 500 mg in 100 mls @ 100 mls/hr IV Q8H [facility] Last Infusion: 11/20/21 06:53 Dose: Infused Documented by: Morphine Sulfate (Morphine Sulfate 4 Mg/Ml Cartridge) 3 mg IVPUSH Q4H PRN; Protocol PRN Reason: Pain, Severe (Pain Scale 7-10) Ondansetron HCl (Ondansetron Hcl 4 Mg/2 Ml Vial) 4 mg IVPUSH Q8H PRN PRN Reason: nausea Last Admin: 11/17/21 17:52 Dose: 4 mg Documented by: Oxycodone HCl (Oxycodone Hcl Immed Release 5 Mg Tablet) 5 mg PO Q6H PRN PRN Reason: Pain, Moderate (Pain Scale 4-6 Sodium Chloride (0.9 % Sodium Chloride Flush 3 Ml Syringe) 3 ml IVFLUSH QSHIFT [facility] Last Admin: 11/19/21 23:49 Dose: 3 ml Documented by: Time Spent With Patient Time: Total time spent is greater than 50% in coordination of care (as documented) at patient's floor/unit and/or counseling patient: Quality Stroke Does the patient have a stroke diagnosis?: No VTE Prior VTE?: No VTE Risk Level:: Medical - moderate - high VTE Device Contraindication: N/A - Device Ordered VTE Drug Contraindication: N/A - Med Ordered
[2021-11-20] MEDS: 0.9 % Sodium Chloride Flush 3 ML SYRINGE IVFLUSH (09:19)
--- NOTE | 2021-11-20 10:32 | MHC.CM.PN ---
NURSE LEAD PONY RIDER NNOTE ELECTRONNIC MEDICAL RECORD REVIEWED ALONG WITH CASE DISUCSSES WITH STAFF NURSE DISCHARGE PLAN HOME TODAY NO SERVICES [facility]INE MOON -FOLLOW UP [facility]
--- NOTE | 2021-11-21 12:39 | P.DS_ITS ---
DS: Providers Provider Date of Service: 11/20/21 <Brittney Lyman PA-C - Last Filed: 11/21/21 12:49> Date of admission: 11/17/21 04:54 <Brittney Lyman PA-C - Last Filed: 11/21/21 12:49> Primary care physician: Cari Blevins MD <Brittney Lyman PA-C - Last Filed: 11/21/21 12:49> Attending physician on admission: Josué Victoria <Brittney Lyman PA-C - Last Filed: 11/21/21 12:49> DS: Diagnosis Discharge Diagnosis (1) Diverticulitis: Status: Acute <KIM Park Last Filed: 11/21/21 12:49> DS: Summary Hospital Course Hospital Course: BRIEF HPI: Carolina Elias is a 51 year old female presenting with complaints of generalized abdominal pain feel worse in the left lower quadrant.? The pain began around and has persisted since then.? Pain initially was felt more the left upper quadrant but now has become more persistent in the lower quadrants.? She denies fever, chills, nausea, or vomiting.? She has not moved her bowels in several days and feels somewhat bloated because of this.? She denies a previous history of similar complaints.? Her past history is significant only for a cholecystectomy in 1996 and denies any problems following the surgery.? She presented? To the emergency department for further evaluation.? Initial laboratories revealed a normal WBC.? A CT of the abdomen and pelvis revealed a focal area of mesenteric inflammation adjacent to small bowel loops in the left abdomen along with a subcentimeter focus of extraluminal gas, possibly due to jejunal diverticulitits without free fluid. HOSPITAL COURSE: The patient was admitted to the surgical service for further treatment of the jejunal microperforation with diverticulitis.? The patient actually had a very benign exam with minimal tenderness to deep palpation and without peritoneal signs.? Nonoperative measures were therefore continued with IV Levofloxacin and Metronidizole, IVF, bowel rest and further plan dependent on course. The patient had an uncomplicated hospital course. She symptomatically improved with supportive measures. Her WBC count remained normal and abdomen remained with minimal tenderness. She was therefore advanced to a clear liquid diet and then solid diet the following day. She was passing flatus and having normal bowel movements. On the day of discharge, she was tolerating a solid diet without any abdominal pain, nausea or vomiting. Her abdomen was benign and without any tenderness. She completed a 4 day course of IV levaquin/flagyl. She felt ready for discharge to home and was discharged on 11/20/21 in stable condition. She is to follow up in the office with Dr. Victoria in office in 1 week and was discharged on a PO course of levaquin/flagyl. <KIM Park Last Filed: 11/21/21 12:49> Status at Discharge Functional status at discharge: independent ambulation <KIM Park Last Filed: 11/21/21 12:49> Overall status at discharge: patient is back to baseline <KIM Park Last Filed: 11/21/21 12:49> Time Spent with Patient Time attestation: Total time spent providing and/or coordinating discharge services: <KIM Park Last Filed: 11/21/21 12:49> Discharge coordination time: Less than 30 minutes <KIM Park Last Filed: 11/21/21 12:49> Quality: Stroke Does the patient have a stroke diagnosis?: No <KIM Park Last Filed: 11/21/21 12:49> Physical Exam Vital Signs: Vital Signs: Last Vital Signs Temp 98.1 F 11/20/21 07:38 Pulse 74 11/20/21 07:38 Resp 20 11/20/21 07:38 BP 135/91 H 11/20/21 07:38 Pulse Ox 99 11/20/21 07:38 BMI result Body Mass Index 40.7 <KIM Park Last Filed: 11/21/21 12:49> Const: General: comfortable and no acute distress <MATTIE Park Last Filed: 11/21/21 12:49> Orientation/consciousness: patient oriented x3 <KIM Park Last Filed: 11/21/21 12:49> Resp: Effort & Inspection: normal respiratory effort <Brittney Lyman PA-C - Last Filed: 11/21/21 12:49> GI: Inspection: No distended <KIM Park Last Filed: 11/21/21 12:49> Palpation (GI): Soft to palpation, nontender and no guarding <Brittney Lyman PA-C - Last Filed: 11/21/21 12:49> Skin: General skin exam: no rashes or lesions noted <Brittney Lyman PA-C - Last Filed: 11/21/21 12:49> Neuro: General: patient oriented x3 <KIM Park Last Filed: 11/21/21 12:49> Extrem: General: Yes no clubbing, cyanosis or edema <KIM Park Last Filed: 11/21/21 12:49> Discharge Plan Discharge Patient Disposition: Home, Self-Care <Brittney Lyman PA-C - Last Filed: 11/21/21 12:49> Discharge Diagnosis: Jejunal Diverticulitis <Brittney Lyman PA-C - Last Filed: 11/21/21 12:49> Jejunal Diverticulitis <Josué Victoria MD - Last Filed: 11/21/21 13:39> Referrals: Josué Victoria MD [Physician] - 1 Week Cari Blevins MD [Primary Care Provider] - 1 Week <Brittney Lyman PA-C - Last Filed: 11/21/21 12:49> Discharge Medications: New levofloxacin 500 mg tablet 500 mg PO DAILY Qty: 10 RF: 0 metronidazole 500 mg tablet 500 mg PO Q8H 10 Days Qty: 30 RF: 0 <KIM Park Last Filed: 11/21/21 12:49> Discharge Orders: Discharge Order (Routine); Ordered 11/20/21 Ordered By: Josué Victoria <KIM Park Last Filed: 11/21/21 12:49> Diet: advance to usual diet <Brittney Lyman PA-C - Last Filed: 11/21/21 12:49> advance to usual diet <Josué Victoria MD - Last Filed: 11/21/21 13:39> Activity on Discharge: As tolerated <Brittney Lyman PA-C - Last Filed: 11/21/21 12:49> As tolerated <Josué Victoria MD - Last Filed: 11/21/21 13:39> Stand Alone Forms: Patient Portal Discharge page <Brittney Lyman PA-C - Last Filed: 11/21/21 12:49> Care Plan Goals: return to normal diet and activity <Brittney Lyman PA-C - Last Filed: 11/21/21 12:49> Health Concerns: abdominal pain, diverticulitis <Brittney Lyman PA-C - Last Filed: 11/21/21 12:49> Plan of Treatment: IV antibiotics converted to oral antibiotics <KIM Park Last Filed: 11/21/21 12:49> Assessment: Jejunal diverticulitis <Brittney Lyman PA-C - Last Filed: 11/21/21 12:49> Discharge Date/Time: 11/20/21 11:13 <KIM Park Last Filed: 11/21/21 12:49>
== END 2021-11-20 11:13 | disposition home or self-care (01) | DRG 392 ==
LOC: HO.ED 11-17 03:02 → HO.EDOVER 11-17 05:05 → HO.S3 11-17 13:44
PROVIDERS: Surgery; Admitting Provider Surgery; Emergency Provider Emergency Medicine; PCP Internal Medicine; Visit Provider Surgery
DX: K57.12 Diverticulitis of small intestine without perforation or abscess without bleeding (principal); Z20.822 Contact with and (suspected) exposure to COVID-19; Z88.0 Allergy status to penicillin; Z88.5 Allergy status to narcotic agent; Z79.899 Other long term (current) drug therapy
CPT/HCPCS: 36415; 74177; 80048; 81001; 85025; 87086; 87088; 87186; 87635; 99285; J1956; J2405; Q9967

== ENCOUNTER → 2021-11-30 14:04 | Outpatient (BNVA) | payer OTHER, SELFPAY | PROVIDERS: PCP Internal Medicine; Visit Provider Surgery | DX: K57.92 Diverticulitis of intestine, part unspecified, without perforation or abscess without bleeding (principal) | CPT/HCPCS: 99212 ==